=== PATIENT | female | born 1950 | race Caucasian/White ===

== ENCOUNTER 2018-02-23 06:00 | Day surgery (SDC) | payer OTHER ==
[~2018-02-23] VITALS: Ht 165.1 cm; Wt 67.1 kg
[~2018-02-23 06:00] MED LIST: ASA81 MG PO; SYNTHROID150 MCG PO
[2018-02-24] MEDS ORDERED: INTESTINEX680 M1 PO (16:09)
[2018-02-24] MEDS ORDERED: POLY119PG PO (16:09)
[2018-02-24] MEDS ORDERED: ULTRACET PO (16:10)
== END 2018-02-24 16:07 | disposition home or self-care (01) ==
LOC: CIR.AMB 06:00 → O/R 10:12 → SURG 10:12 → O/R 10:26 → SURH 10:26 → SURG 10:26 → O/R 10:30 → SURH 10:30 → EDSTATUS 11:15 → SURH 15:30 → CIR.AMB 02-24 16:07 → O/R 02-24 16:19 → SURH 02-24 16:19
DX: C20 Malignant neoplasm of rectum (principal)